=== PATIENT | female | born 1980 | race Caucasian/White ===

== ENCOUNTER → 2020-03-03 | Outpatient (CLI) | payer OTHER ==
[2015-08-04 10:46] VITALS: BP 109/60
[~2020-03-03] MED LIST: BIRTHCONTROL PILL PO; CETI10CA PO; CHOL500050 PO; LEVO112T49 PO; OXYC1TAB15 PO; OXYC1TAB7 PO; PHEN1CPM2 PO
== END ==
LOC: LAB 13:39
PROVIDERS: ATTEND Surgery
DX: Z01.812 Encounter for preprocedural laboratory examination (principal); K42.9 Umbilical hernia without obstruction or gangrene; K43.9 Ventral hernia without obstruction or gangrene; Z20.828 Contact with and (suspected) exposure to other viral communicable diseases
CPT/HCPCS: U0003

== ENCOUNTER 2020-03-06 06:32 | Day surgery (SDC) | payer OTHER ==
[~2020-03-06] VITALS: Ht 157.5 cm; Wt 100.0 kg
[~2020-03-06 06:32] MED LIST changes: +ACETAMINOPHEN 500 MG TABLET PO PRN; +BUPIVACAINE-EPI 0.25%-1:200000 MPF 30 ML VIAL. INJ ONE; -OXYC1TAB15 PO
[2020-03-06] MEDS ORDERED: ONDANSETRON PF 4 MG/2 ML VIAL. IV PRN (07:00)
[2020-03-06] MEDS ORDERED: IV RINGERS,LACTATED 1000ML 1,000 ML IV SCH (07:00)
[2020-03-06] MEDS ORDERED: PROCHLORPERAZINE 10 MG/2 ML VIAL. IV PRN (07:00)
[2020-03-06] MEDS ORDERED: fentaNYL PF VIAL 100 MCG/2 ML VIAL IV PRN ×2 (07:00)
[2020-03-06] MEDS ORDERED: BUPIVACAINE-EPI 0.25%-1:200000 MPF 30 ML VIAL. INJ ONE (07:15)
[2020-03-06] MEDS ORDERED: ROCURONIUM 50 MG/5 ML VIAL. ONE (07:41)
[2020-03-06] MEDS ORDERED: MIDAZOLAM HCL/PF 2 MG/2 ML VIAL. ONE (07:41)
[2020-03-06] MEDS ORDERED: fentaNYL PF VIAL 250 MCG/5 ML VIAL ONE (07:42)
[2020-03-06] MEDS ORDERED: ONDANSETRON PF 4 MG/2 ML VIAL. ONE (08:17)
[2020-03-06] MEDS ORDERED: PROPOFOL 10 MG/ML (20ML) VIAL. IV ONE (08:17)
[2020-03-06] MEDS ORDERED: DEXAMETHASONE SOD PHOS 20 MG/5 ML VIAL. ONE (08:17)
[2020-03-06] MEDS ORDERED: LIDOCAINE 2% PF 5 ML VIAL. ONE (08:17)
[2020-03-06] MEDS ORDERED: SEVOFLURANE 61 TO 120 MINUTES. IH ONE (08:18)
[2020-03-06] MEDS ORDERED: MINERAL OIL for SURGERY 10 ML VIAL. MC ONE (08:24)
[2020-03-06] MEDS ORDERED: NEOSTIGMINE METHYLSULFATE 5 MG/5 ML SYRINGE. ONE (09:00)
[2020-03-06] MEDS ORDERED: GLYCOPYRROLATE 1 MG/5 ML VIAL. ONE (09:00)
--- NOTE | 2020-03-06 09:09 | PDOC4 ---
Operative Note Operative Note Date: March 06, 2020 at 905 Preoperative diagnosis: Incarcerated ventral hernia and umbilical hernia Postoperative diagnosis: Same Procedure: Robotic assisted laparoscopic hernia repairs with mesh Surgeon: Dajuan Specimen: None Dictation: Patient is 40-year-old female with a palpable bulge above her umbilicus and one at the umbilicus CT scan confirmed hernias at both places with incarcerated omentum. Procedure of robotic assisted laparoscopic hernia repair with mesh was explained to the patient detail risk benefits were also discussed including bleeding infection injury to intra-abdominal contents possible necessitating further or open operations alternatives to this procedure also discussed with the patient who seemed to understand and gave both verbal and written consent to have the procedure performed. Patient was taken to the operating room placed in the supine position general anesthesia was initiated once patient was sleeping intubated her abdomen was prepped and draped usual sterile fashion using ChloraPrep. An area in the left upper quadrant was injected with quarter percent Marcaine with epinephrine incision was made 11 blade scalpel and a 5 mm Visiport was placed under direct visualization pneumoperitoneum was achieved abdomen was inspected with 5 mm scope which showed several small hernias in line with where the umbilical and ventral hernia are with incarcerated omentum a 8 mm da Alycia ports placed in the left midabdomen and an 8 mm da Alycia port was placed in the left lower abdomen and the 5 mm Visiport was replaced with 8 mm da Alycia port. The da Alycia robot was brought and docked all port sites surgeon went to the robotic console using a grasper and Endo Kenzie scissors the omentum was reduced from the hernia defects. Using 20V lock nonabsorbable suture the hernia defects were closed in a running fashion. Ventral light ST mesh was then placed over the hernia defect this was sewn into place with a 2 OV lock absorbable suture circumferentially. Sutures removed the robot was undocked from all port sites the pneumoperitoneum reduced all ports were removed the port sites were all closed with 4-0 subcuticular Monocryl Mastisol Steri-Strips and island dressings were applied. Patient was awakened and extubated in the operating room taken to recovery in stable condition all sponge instrument needle counts listed as correct estimated blood loss 10 mL TANNER JASMINE MD Mar 06, 2020 09:08
--- NOTE | 2020-03-06 09:11 | DISCH ---
DISCHARGE INSTRUCTIONS Condition on Discharge Condition on Discharge: Stable Activity After Discharge Activity Instructions for Disc: Avoid exertion Other activity instructions: No lifting more than 20 pounds for 2 weeks Diet after Discharge Diet after Discharge: Regular Wound Incision Care Other wound/incision instructi: May shower in 24 hours Contacting the DRJodi after DC Call your doctor for: If your condition worsens Follow-Up Follow up with: Dr. Jasmine in 2 weeks TANNER JASMINE MD Mar 06, 2020 09:11
[2020-03-06] MEDS ORDERED: MORPHINE SULFATE 2 MG/ML VIAL. ONE (09:19)
[2020-03-06] MEDS: MORPHINE SULFATE 2 MG/ML VIAL. IV PRN ×2 (09:24→09:38)
[2020-03-06] MEDS ORDERED: OXYC1TAB15 PO (09:35)
[2020-03-06] MEDS ORDERED: oxyCODONE/APAP 5/325 1 TAB TABLET PO ONE ×2 (09:45)
[2020-03-06] MEDS ORDERED: HYDROmorphone 2 MG/ML VIAL ONE (09:50)
[2020-03-06] MEDS: HYDROmorphone 2 MG/ML VIAL IV PRN ×2 (09:51→10:30)
[2020-03-06 10:57] VITALS: BP 2/4
== END 2020-03-06 11:00 | disposition home or self-care (01) ==
LOC: SURG 06:32
PROVIDERS: ATTEND Surgery
DX: K43.6 Other and unspecified ventral hernia with obstruction, without gangrene (principal); K42.0 Umbilical hernia with obstruction, without gangrene; E66.9 Obesity, unspecified; E03.9 Hypothyroidism, unspecified; Z72.89 Other problems related to lifestyle; Z79.899 Other long term (current) drug therapy; Z98.890 Other specified postprocedural states
CPT/HCPCS: 49653; 81025; C1781; J0690; J1100; J1170; J2250; J2270; J2405; J2704; J2710; J3010; J3490; J7120; S2900